=== PATIENT | female | born 1990 | race Caucasian/White ===

== ENCOUNTER 2018-02-12 18:56 | Emergency (ER) | payer OTHER ==
[~2018-02-12] VITALS: Ht 149.9 cm; Wt 38.6 kg
[~2018-02-12 18:56] MED LIST: ABAC300; FOLI400 PO; IBUP800 PO; MULVITMINE PO; OXYACE5T PO; PROM25 PO
[2018-02-12] MEDS ORDERED: Cleocin HCl300 MG PO (20:43)
== END 2018-02-12 20:58 | disposition home or self-care (01) ==
LOC: ER 18:56
DX: L02.411 Cutaneous abscess of right axilla (principal); F17.210 Nicotine dependence, cigarettes, uncomplicated
CPT/HCPCS: 99282

== ENCOUNTER → 2018-09-09 | Outpatient (CLI) | payer OTHER ==
[~2018-09-09] MED LIST changes: +Cleocin HCl300 MG PO
== END | disposition home or self-care (01) ==
LOC: LAB 13:43 → LAB SHORT 13:43
DX: Z34.80 Encounter for supervision of other normal pregnancy, unspecified trimester (principal)
CPT/HCPCS: 87081; 87653

== ENCOUNTER 2018-10-07 18:05 | Inpatient (IN) | payer OTHER ==
[~2018-10-07] VITALS: Ht 149.9 cm; Wt 55.9 kg
[2018-10-07 21:10] LABS: BASOPHILS ABSOLUTE AUTO 0.04 K/mm3 (0.00-0.23); BASOPHILS PERCENT AUTO 0 % (0-2); EOSINOPHILS ABSOLUTE AUTO 0.02 K/mm3 (0.00-0.68); EOSINOPHILS PERCENT AUTO 0 % (0-6); Hematocrit 38.5 % (33.0-51.0); IMMATURE GRAN ABSOLUTE AUTO 0.11 K/mm3 (0.00-0.10); IMMATURE GRAN PERCENT AUTO 1 % (0-1); LYMPHOCYTES ABSOLUTE AUTO 1.64 K/mm3 (0.84-5.20); LYMPHOCYTES PERCENT AUTO 9 % (21-46); MONOCYTES ABSOLUTE AUTO 0.35 K/mm3 (0.16-1.47); MONOCYTES PERCENT AUTO 2 % (4-13); Mean Corpuscular HGB Conc 33.8 g/dL (31.5-36.5); Mean Corpuscular Volume 98 fL (80-100); Mean Platelet Volume 11.2 fL (9.1-12.4); NEUTROPHILS PERCENT AUTO 88 % (41-73); Platelet Count 229 K/mm3 (150-400); RDW Coefficient Variation 13.4 % (11.7-14.2); RDW Standard Deviation 48.3 fL (35.1-46.3); Red Blood Cell Count 3.94 M/mm3 (3.80-5.20); White Blood Cell Count 18.36 K/mm3 (4.00-11.30)
--- NOTE | 2018-10-08 09:11 | NUR ---
BLOOD PATCH PROCEDURE COMPLETED AT [address] ALEXANDER. PROCEDURE EXPLAINED, CONSENT OBTAINED. 12 ML OF PT'S BLOOD TAKEN FROM RIGHT AC AND PLACED IN EPIDURAL CATHETER BY DR. ALEXANDER. PT TOLERATED WELL. PATIENT IMMEDIATELY PLACED IN SUPINE POSITION AND TOLD TO STAY IN POSITION FOR AN HOUR. WILL ROUND ON PT IN ONE HOUR TO REMOVE EPIDURAL CATHETER. PT STATES SHE DOES NOT HAVE A HEADACHE.
--- NOTE | 2018-10-08 12:57 | NUR ---
PT PASSED SMALL CLOT, SLIGHTLY BIGGER THAN A QUARTER. PT'S FUNDUS IS FIRM UPON MASSAGE, SCANT BLEEDING. WILL CONTINUE TO MONITOR.
--- NOTE | 2018-10-09 03:34 | NUR ---
PT REPORTS TEMPORAL H/A RATED 6/10 THAT STARTED 10-15 MIN AGO. IT IS LESS INTENSE WHEN SHE LAYS FLAT. NO OTHER SYMPTOMS REPORTED. PO TYLENOL AND A SNACK GIVEN.VSS.
[2018-10-09 05:43] LABS: BASOPHILS ABSOLUTE AUTO 0.04 K/mm3 (0.00-0.23); BASOPHILS PERCENT AUTO 0 % (0-2); EOSINOPHILS ABSOLUTE AUTO 0.16 K/mm3 (0.00-0.68); EOSINOPHILS PERCENT AUTO 1 % (0-6); Hematocrit 34.1 % (33.0-51.0); Hemoglobin 11.3 g/dL (11.5-16.0); IMMATURE GRAN ABSOLUTE AUTO 0.07 K/mm3 (0.00-0.10); IMMATURE GRAN PERCENT AUTO 1 % (0-1); LYMPHOCYTES ABSOLUTE AUTO 2.53 K/mm3 (0.84-5.20); LYMPHOCYTES PERCENT AUTO 20 % (21-46); MONOCYTES ABSOLUTE AUTO 0.56 K/mm3 (0.16-1.47); MONOCYTES PERCENT AUTO 5 % (4-13); Mean Corpuscular HGB 32.8 pg (26.0-34.0); Mean Corpuscular HGB Conc 33.1 g/dL (31.5-36.5); Mean Corpuscular Volume 99 fL (80-100); Mean Platelet Volume 10.9 fL (9.1-12.4); NEUTROPHILS ABSOLUTE AUTO 9.12 K/mm3 (1.96-9.15); NEUTROPHILS PERCENT AUTO 73 % (41-73); Platelet Count 205 K/mm3 (150-400); RDW Coefficient Variation 13.8 % (11.7-14.2); RDW Standard Deviation 49.6 fL (35.1-46.3); Red Blood Cell Count 3.45 M/mm3 (3.80-5.20); White Blood Cell Count 12.48 K/mm3 (4.00-11.30)
[2018-10-09] MEDS ORDERED: IBUP800 PO (08:15)
--- NOTE | 2018-10-09 08:51 | NUR ---
PATIENT HAS PORTAL ACCOUNT BUT DOESN'T USE IT. DECLINED BABY PORTAL
[2018-10-09] MEDS ORDERED: DOCU100 PO (10:28)
--- NOTE | 2018-10-09 11:05 | NUR ---
Printed d/c instructions reviewed w/pt. Questions answered to her satisfaction. No acute changes t/o shift. Pt d/c'd home ambulatory to care .
== END 2018-10-09 11:05 | disposition home or self-care (01) | DRG 806 ==
LOC: OBS 18:05 → BC 18:05 → OBS 20:18 → BC 20:47
PROVIDERS: ADMIT Advanced Practice Midwife
PROC: 10E0XZZ Delivery of Products of Conception, External Approach (ICD-10-PCS; principal; 2018-10-08)
PROC: 0UQMXZZ Repair Vulva, External Approach (ICD-10-PCS; 2018-10-08)
PROC: 3E0R3BZ Introduction of Anesthetic Agent into Spinal Canal, Percutaneous Approach (ICD-10-PCS; 2018-10-08)
PROC: 00HU33Z Insertion of Infusion Device into Spinal Canal, Percutaneous Approach (ICD-10-PCS; 2018-10-08)
PROC: 3E0R3GC Introduction of Other Therapeutic Substance into Spinal Canal, Percutaneous Approach (ICD-10-PCS; 2018-10-08)
DX: O34.211 Maternal care for low transverse scar from previous cesarean delivery (principal); G97.41 Accidental puncture or laceration of dura during a procedure; Z37.0 Single live birth; O99.333 Smoking (tobacco) complicating pregnancy, third trimester; Z3A.40 40 weeks gestation of pregnancy; O74.6 Other complications of spinal and epidural anesthesia during labor and delivery
CPT/HCPCS: 36415; 59025; 85025; 86850; 86900; 86901; 99213; J2590; J7120

== ENCOUNTER → 2021-04-08 | Outpatient (CLI) | payer OTHER ==
[~2021-04-08] MED LIST changes: +DOCU100 PO
[2021-04-08 16:07] LABS: Source, Urine Clean Catch
[2021-04-08 17:49] LABS: Bacteria Rare /hpf; Red Blood Cells, Urine 0-2 /hpf (0-2); Squamous Epithelial Cells Few /hpf (Few); White Blood Cells, Urine 0-2 /hpf (0-5)
[2021-04-08 17:54] LABS: U Amphetamine Screen Not Detected; U Barbituate Screen Not Detected; U Benzodiazapine Screen Not Detected; U Buprenorphine Screen Not Detected; U Cannabinoids Screen Not Detected; U Cocaine Screen Not Detected; U Methadone Screen Not Detected; U Methamphetamine Screen Not Detected; U Opiates Screen Not Detected; U Oxycodone Screen Not Detected; U Phencyclidine Screen Not Detected; U Propoxyphene Screen Not Detected
== END | disposition home or self-care (01) ==
LOC: LAB SHORT 16:03
PROVIDERS: Family Medicine
DX: Z34.81 Encounter for supervision of other normal pregnancy, first trimester (principal)
CPT/HCPCS: 81015; 87086

== ENCOUNTER → 2021-10-10 | Outpatient (CLI) | payer OTHER | END | disposition home or self-care (01) | LOC: LAB SHORT 17:00 → LAB 17:00 | DX: O09.892 Supervision of other high risk pregnancies, second trimester (principal); O34.211 Maternal care for low transverse scar from previous cesarean delivery | CPT/HCPCS: 87081; 87150 ==

== ENCOUNTER 2021-10-25 18:34 | Inpatient (IN) | payer OTHER ==
[~2021-10-25] VITALS: Ht 149.9 cm; Wt 59.1 kg
[2021-10-25 20:00] LABS: BASOPHILS ABSOLUTE AUTO 0.04 K/mm3 (0.00-0.23); BASOPHILS PERCENT AUTO 0 % (0-2); EOSINOPHILS ABSOLUTE AUTO 0.05 K/mm3 (0.00-0.68); EOSINOPHILS PERCENT AUTO 0 % (0-6); Hematocrit 39.5 % (33.0-51.0); Hemoglobin 13.7 g/dL (11.5-16.0); IMMATURE GRAN ABSOLUTE AUTO 0.09 K/mm3 (0.00-0.10); IMMATURE GRAN PERCENT AUTO 1 % (0-1); LYMPHOCYTES ABSOLUTE AUTO 2.11 K/mm3 (0.84-5.20); LYMPHOCYTES PERCENT AUTO 12 % (21-46); MONOCYTES ABSOLUTE AUTO 0.58 K/mm3 (0.16-1.47); MONOCYTES PERCENT AUTO 3 % (4-13); Mean Corpuscular HGB 32.1 pg (26.0-34.0); Mean Corpuscular HGB Conc 34.7 g/dL (31.5-36.5); Mean Corpuscular Volume 93 fL (80-100); Mean Platelet Volume 10.7 fL (9.1-12.4); NEUTROPHILS ABSOLUTE AUTO 15.01 K/mm3 (1.96-9.15); NEUTROPHILS PERCENT AUTO 84 % (41-73); Platelet Count 268 K/mm3 (150-400); RDW Standard Deviation 43.8 fL (35.1-46.3); Red Blood Cell Count 4.27 M/mm3 (3.80-5.20); White Blood Cell Count 17.88 K/mm3 (4.00-11.30)
[2021-10-25] MEDS ORDERED: CETI5 PO (20:52)
[2021-10-25 22:25] LABS: Influenza A, PCR NEGATIVE (NEGATIVE); Influenza B, PCR NEGATIVE (NEGATIVE); Resp Syncytial Virus, PCR NEGATIVE (NEGATIVE); SARS-Cov-2 (COVID-19) PCR, MMC NEGATIVE (NEGATIVE)
[2021-10-26] MEDS ORDERED: IBU800 M1 (12:51)
== END 2021-10-26 21:17 | disposition home or self-care (01) | DRG 807 ==
LOC: OBS 18:34 → BC 18:36 → OBS 19:22 → BC 19:25
PROVIDERS: ADMIT Family Medicine
PROC: 10E0XZZ Delivery of Products of Conception, External Approach (ICD-10-PCS; principal; 2021-10-25)
DX: O42.02 Full-term premature rupture of membranes, onset of labor within 24 hours of rupture (principal); Z37.0 Single live birth; O24.420 Gestational diabetes mellitus in childbirth, diet controlled; Z3A.40 40 weeks gestation of pregnancy; Z20.822 Contact with and (suspected) exposure to COVID-19; O34.211 Maternal care for low transverse scar from previous cesarean delivery; O99.334 Smoking (tobacco) complicating childbirth; F17.210 Nicotine dependence, cigarettes, uncomplicated; J45.20 Mild intermittent asthma, uncomplicated; O99.52 Diseases of the respiratory system complicating childbirth; Z79.899 Other long term (current) drug therapy; Z98.890 Other specified postprocedural states
CPT/HCPCS: 0241U; 36415; 59025; 85025; 86850; 86900; 86901; A9270; J1885; J2590; J3010; J7120

== ENCOUNTER → 2022-10-22 | Outpatient (CLI) | payer OTHER ==
[~2022-10-22] MED LIST changes: +CETI5 PO; +IBU800 M1
[2022-10-23 10:45] LABS: Candida species (DNA Probe) Negative (NEGATIVE); G. vaginalis (DNA Probe) Negative (NEGATIVE); T. vaginalis (DNA Probe) Negative (NEGATIVE)
== END | disposition home or self-care (01) ==
LOC: LAB 17:03 → LAB SHORT 17:03
PROVIDERS: Advanced Practice Midwife
DX: N76.0 Acute vaginitis (principal)
CPT/HCPCS: 87480; 87510; 87660

== ENCOUNTER → 2022-12-26 | Outpatient (CLI) | payer OTHER ==
[2022-12-26 16:36] LABS: Candida species (DNA Probe) Negative (NEGATIVE); G. vaginalis (DNA Probe) Negative (NEGATIVE); T. vaginalis (DNA Probe) Negative (NEGATIVE)
[2022-12-27 21:10] LABS: T PALLIDUM ANTIBODIES Non Reactive (Non Reactive)
== END | disposition home or self-care (01) ==
LOC: LAB 13:59 → LAB SHORT 13:59
PROVIDERS: Advanced Practice Midwife
DX: Z11.3 Encounter for screening for infections with a predominantly sexual mode of transmission (principal); N76.0 Acute vaginitis
CPT/HCPCS: 86780; 87480; 87510; 87593; 87660

== ENCOUNTER → 2023-01-26 | Outpatient (CLI) | payer OTHER ==
[2023-01-27 10:35] LABS: Candida species (DNA Probe) Negative (NEGATIVE); G. vaginalis (DNA Probe) Negative (NEGATIVE); T. vaginalis (DNA Probe) Negative (NEGATIVE)
[2023-01-28 04:11] LABS: CHLAMYDIA TRACHOMATIS, NAA Negative (Negative)
== END | disposition home or self-care (01) ==
LOC: LAB 15:12 → LAB SHORT 15:12
PROVIDERS: Advanced Practice Midwife
DX: Z11.3 Encounter for screening for infections with a predominantly sexual mode of transmission (principal); N76.0 Acute vaginitis
CPT/HCPCS: 87480; 87491; 87510; 87591; 87660

== ENCOUNTER 2023-05-14 20:49 | Emergency (ER) | payer OTHER ==
[~2023-05-14] VITALS: Ht 149.9 cm; Wt 59.0 kg
[2023-05-14] MEDS ORDERED: ZANAFLEX (20:59)
[2023-05-14] MEDS ORDERED: ASPERFLEX1 EACH TOP (23:46)
[2023-05-15 00:20] VITALS: BP 98/69
== END 2023-05-15 00:21 | disposition home or self-care (01) ==
LOC: ER 20:49
DX: M54.16 Radiculopathy, lumbar region (principal); F17.210 Nicotine dependence, cigarettes, uncomplicated; X50.0XXA Overexertion from strenuous movement or load, initial encounter
CPT/HCPCS: 96372; 99283-25; A9270; J1885

== ENCOUNTER → 2023-09-17 | Outpatient (CLI) | payer OTHER ==
[~2023-09-17] MED LIST changes: +ASPERFLEX1 EACH TOP; +ZANAFLEX
== END ==
LOC: LAB 07:52 → LAB SHORT 07:52
DX: L30.8 Other specified dermatitis (principal); R23.4 Changes in skin texture
CPT/HCPCS: 88305; 88312

== ENCOUNTER → 2024-03-08 | Outpatient (CLI) | payer OTHER ==
[2024-03-09 03:25] LABS: Bacterial Vaginosis PCR Negative (NEGATIVE); Candida Group, PCR NOT DETECTED (NOT DETECT); Candida glabrata-krusei, PCR NOT DETECTED (NOT DETECT)
== END | disposition home or self-care (01) ==
LOC: LAB SHORT 16:56 → LAB 16:56
PROVIDERS: Family Medicine
DX: Z01.419 Encounter for gynecological examination (general) (routine) without abnormal findings (principal); N89.8 Other specified noninflammatory disorders of vagina
CPT/HCPCS: 87481; 87661; 87801

== ENCOUNTER → 2025-05-11 | Outpatient (CLI) | payer OTHER ==
[2025-05-17 05:30] LABS: HSV SUBTYPE SOURCE VULVA
== END ==
LOC: LAB SHORT 17:06 → LAB 17:06
PROVIDERS: Family Medicine
DX: N76.6 Ulceration of vulva (principal)
CPT/HCPCS: 87529